=== PATIENT | female | born 1940 | race Caucasian/White ===

== ENCOUNTER 2019-09-09 13:25 | Emergency (ER) | payer MEDICARE, SELFPAY ==
[2019-09-09 14:23] VITALS: BP 114/69; PULSE 78; RESP 16; TEMP 36.5; O2SAT 98
--- NOTE | 2019-09-09 14:26 | ED.FALL ---
HPI - Fall General Stated Complaint: fall Time Seen by Provider: 09/09/19 14:27 Source: patient, family and RN notes reviewed History of Present Illness HPI Narrative: Patient is an 79-year-old female presents the urgent care with her spouse with complaints of low back pain, acute on chronic. Spouse states that she was unable to get her foot lifted high enough for the step 2 days ago and she twisted to the right lowering herself to the ground. Spouse says that he did have a hold of her and she did not fall. Patient sat down on her bottom without any traumatic fall. Denies hitting her head or loss of consciousness. Spouse states that it happened 2 days ago and she has yet to use anything [id number] for her pain. Patient does have chronic back pain and restless leg and used to be on gabapentin which spouse states helped her a lot . Spouse has not followed up with her PCP regarding refill of gabapentin. No other acute complaints. Patient ambulated in with a wheeled walker. No acute distress noted. Patient and spouse aware of the plan of care. Related Data Home Medications Medication Instructions Recorded Confirmed lisinopril 10 mg PO DAILY 09/09/19 09/09/19 memantine 14 mg PO DAILY 09/09/19 09/09/19 ondansetron 4 mg PO Q8H PRN 09/09/19 09/09/19 oxybutynin chloride 5 mg PO DAILY 09/09/19 09/09/19 quetiapine 25 mg PO BID 09/09/19 09/09/19 sertraline 100 mg PO DAILY 09/09/19 09/09/19 Allergies Allergy/AdvReac Type Severity Reaction Status Date / Time penicillin G Allergy Mild Unknown Verified 09/09/19 14:26 Sulfa (Sulfonamide Allergy Mild Unknown Verified 09/09/19 14:26 Antibiotics) azithromycin AdvReac Intermediate Nausea and Verified 09/09/19 14:26 Vomiting donepezil AdvReac Intermediate Nausea Verified 09/09/19 14:26 erythromycin base AdvReac Intermediate Dizziness Verified 09/09/19 14:26 NSAIDS (Non-Steroidal AdvReac Intermediate Nausea and Verified 09/09/19 14:26 Anti-Inflamma Vomiting zolpidem AdvReac Intermediate Unknown Verified 09/09/19 14:26 Review of Systems Review of Systems: Narrative: CONSTITUTIONAL: Denies fever, chills, or sweats. EYES: Denies visual changes, redness, or discharge. ENT: Denies rhinorrhea, congestion, sore throat, or otalgia. CARDIOVASCULAR: Denies chest pain, palpitations, or edema. RESPIRATORY: Denies cough or dyspnea. GASTROINTESTINAL: Denies abdominal pain, nausea, vomiting, or diarrhea. GENITOURINARY: Denies dysuria or hematuria. SKIN: Denies rash or itching. MUSCULOSKELETAL: Reports of right sided mid back pain and low back pain NEUROLOGIC: Denies headache, numbness, or weakness. All other systems reviewed are negative, except as documented in HPI. PMFSH Comments At the time of my signature, I reviewed and agree with the nursing past medical, surgical, social, and family history. There is no relevant family history pertinent to the patient complaint. Exam Narrative: Exam Narrative: GENERAL: This is a well-nourished, well-developed patient, in no apparent distress. HEAD: normocephalic, atraumatic. EYES: PERRL. Sclera clear/white. Vision is grossly intact. EARS: External ears normal NOSE: External nose normal with no obvious nasal discharge THROAT: Mucous membranes moist NECK: Neck supple CARDIOVASCULAR: Regular rate and rhythm without murmurs, gallops, or rubs. RESPIRATORY: Clear to auscultation. Breath sounds equal bilaterally. No wheezes, rales, or rhonchi. SKIN: warm, intact with no suspicious lesions or rash, good texture and turgor. NEURO: awake, alert, and oriented to person, place and time. There were no obvious focal neurologic abnormalities. EXTREMITIES: No clubbing, cyanosis, or edema. BACK: Obvious curvature of the spine with diffuse mild lumbar tenderness, no ecchymosis Course Vital Signs Vital signs: Vital Signs Temperature 97.7 F 09/09/19 14:23 Pulse Rate 78 09/09/19 14:23 Respiratory Rate 16 09/09/19 14:23 Blood Pressure 114/69
== END 2019-09-09 14:45 | disposition home or self-care (01) ==
PROVIDERS: Emergency Provider Nurse Practitioner Family
DX: M54.5 Low back pain (principal); G25.81 Restless legs syndrome; F03.90 Unspecified dementia, unspecified severity, without behavioral disturbance, psychotic disturbance, mood disturbance, and anxiety; I10 Essential (primary) hypertension; J45.909 Unspecified asthma, uncomplicated; M79.7 Fibromyalgia; M19.90 Unspecified osteoarthritis, unspecified site; M81.0 Age-related osteoporosis without current pathological fracture
CPT/HCPCS: 99211; G0463